=== PATIENT | male | born 1980 | race Asian ===

== ENCOUNTER 2020-03-01 14:12 | Emergency (ER) | payer OTHER ==
[~2020-03-01] VITALS: Ht 180.3 cm; Wt 105.0 kg
[2020-03-01] MEDS ORDERED: HYDROmorphone 1 MG/ML, 1ML INJ ONE (14:17)
[2020-03-01] MEDS ORDERED: ONDANSETRON 2MG/ML, 2ML ONE (14:17)
[2020-03-01] MEDS ORDERED: CEFAZOLIN PMX 1GM/50ML 50 ML ONE (14:17)
[2020-03-01] MEDS ORDERED: CEFAZOLIN PMX 1GM/50ML 50 ML IVPB ONE (14:30)
[2020-03-01] MEDS ORDERED: HYDROmorphone 1 MG/ML, 1ML INJ IVPush PRN (14:30)
[2020-03-01] MEDS ORDERED: SODIUM CHLORIDE FLUSH 10ML SYR IVF ONE (14:30)
[2020-03-01] MEDS ORDERED: LIDOCAINE-MPF 1%, 5ML ONE (14:32)
--- NOTE | 2020-03-01 14:32 | NUR ---
ortho was called @1182. Waiting for ortho doc reply.
--- NOTE | 2020-03-01 14:35 | NUR ---
LATE ENTRY: [facility] was called @1531.
[2020-03-01 14:40] VITALS: BP 142/95
[2020-03-01] MEDS ORDERED: BUPIVACAINE 0.25% INFIL ONE (15:00)
== END 2020-03-01 16:24 | disposition home or self-care (01) ==
LOC: ED 14:26
DX: S61.412A Laceration without foreign body of left hand, initial encounter (principal); X58.XXXA Exposure to other specified factors, initial encounter; Y93.89 Activity, other specified; Y92.009 Unspecified place in unspecified non-institutional (private) residence as the place of occurrence of the external cause; Y99.8 Other external cause status
CPT/HCPCS: 12042; 73130; 96365; 96375; 99284; J0690; J1170